=== PATIENT | female | born 1985 | race African-American/Black ===

== ENCOUNTER 2019-02-27 18:25 | Emergency (ER) | payer OTHER ==
[~2019-02-27] VITALS: Ht 172.7 cm; Wt 76.7 kg
[~2019-02-27 18:25] MED LIST: FLEXERIL PO; MOBIC15 MG PO
[2019-02-27] MEDS ORDERED: IBUPROFEN 600600 M1 PO (19:34)
[2019-02-27] MEDS ORDERED: HYDROCODONE-AP1 EAC6 PO (19:34)
[2019-02-27 20:46] VITALS: BP 115/74
== END 2019-02-27 20:47 | disposition home or self-care (01) ==
LOC: ER 18:25
DX: M66.871 Spontaneous rupture of other tendons, right ankle and foot (principal); S90.01XA Contusion of right ankle, initial encounter; W18.39XA Other fall on same level, initial encounter; Y92.89 Other specified places as the place of occurrence of the external cause; Y93.67 Activity, basketball; Y99.8 Other external cause status

== ENCOUNTER 2020-09-11 01:52 | Emergency (ER) | payer BC ==
[~2020-09-11] VITALS: Ht 175.3 cm; Wt 76.7 kg
[~2020-09-11 01:52] MED LIST changes: +HYDROCODONE-AP1 EAC6 PO; +IBUPROFEN 600600 M1 PO
[2020-09-11] MEDS ORDERED: NOHOMEMEDICATIONS (02:29)
[2020-09-11] MEDS ORDERED: ZPAK PO (02:45)
[2020-09-11] MEDS ORDERED: ONDANSETRON ODT8 MG PO (02:45)
[2020-09-11] MEDS ORDERED: PREDNISONE 20 M20 MG PO (02:45)
[2020-09-11] MEDS ORDERED: PREDNISONE10 MG PO (02:47)
[2020-09-11 03:15] VITALS: BP 124/80
== END 2020-09-11 03:15 | disposition home or self-care (01) ==
LOC: ER 01:52
DX: O98.511 Other viral diseases complicating pregnancy, first trimester (principal); U07.1 COVID-19; R19.7 Diarrhea, unspecified; R11.2 Nausea with vomiting, unspecified; M79.10 Myalgia, unspecified site; Z3A.09 9 weeks gestation of pregnancy